=== PATIENT | male | born 1970 | race Two or more races ===

== ENCOUNTER 2016-10-29 03:01 | Emergency (ER) | payer BC ==
[~2016-10-29 03:01] MED LIST: ACETAMINOPHEN PO; NO MEDICATIONS; ZITHROMAX1 G/PKT PO
== END 2016-10-29 03:50 | disposition home or self-care (01) ==
LOC: SED 03:01
DX: J02.9 Acute pharyngitis, unspecified (principal)
CPT/HCPCS: 87651; 99283